=== PATIENT | female | born 1960 ===

== ENCOUNTER 2020-06-19 20:31 | Inpatient (IN) ==
[2020-06-19] MEDS ORDERED: Nitro 2% OINT (Nitroglycerin) 1 INCH/PAK TOPICAL ONE (20:55)
[2020-06-19] MEDS ORDERED: Nitro 2% OINT (Nitroglycerin) 1 INCH/PAK ONE (20:56)
[2020-06-19 21:08] LABS: ABS Eosinophils 0.2 10^3/ul (0-0.6); ABS Lymphocytes 2.9 10^3/ul (1.0-4.8); ABS Monocytes 0.6 10^3/ul (0-0.8); ABS Neutrophils 4.2 10^3/ul (1.5-7.7); Eosinophil % 2.9 %; Hematocrit 40 % (35-47); Hemoglobin 13.7 g/dL (12.0-16.0); Lymphocyte % 36.3 %; Mean Corpuscular HGB Conc 35 g/dL (31-36); Mean Corpuscular Hemoglobin 33 pg (27-31); Mean Corpuscular Volume 95 fL (80-97); Mean Platelet Volume 6.9 fL (7.4-10.4); Nucleated Red Blood Cells % 0.1; Platelet Count 243 10^3/uL (150-450); Red Blood Count 4.18 10^6 /uL (3.70-4.87); Red Cell Distribution Width 12 % (10-15)
[2020-06-19 21:18] LABS: INR 1.08 (0.82-1.09)
[2020-06-19 21:25] LABS: Albumin 4.4 g/dL (3.2-5.2); Albumin/Globulin Ratio 1.3 (1-3); BUN/Creatinine Ratio 23.2 (8-20); Calcium 9.6 mg/dL (8.6-10.3); EGFR African American 133.6 (>60); EGFR Non-African American 110.4 (>60); Globulin 3.4 g/dL (2-4); Total Bilirubin 0.2 mg/dL (0.2-1.0); Total Protein 7.8 g/dL (6.4-8.9)
[2020-06-19 21:27] LABS: Potassium 4.3 mmol/L (3.5-5.0)
[2020-06-19 21:40] LABS: TSH Ultra Thyroid Stim Horm 2.74 mcIU/mL (0.34-5.60)
[2020-06-19] MEDS ORDERED: Dextrose 50% Syringe 50 ml 25 GM/50 ML SYRINGE IV PUSH PRN (22:11)
[2020-06-19 22:38] LABS: C Reactive Protein 5.95 mg/L (<8.01); HDL Cholesterol 39.1 mg/dL; Magnesium 1.9 mg/dL (1.9-2.7)
[2020-06-19] MEDS ORDERED: Al Hydrox/Mg Hydrox/Simet LIQ 30 ML UDC PO ONE (22:46)
[2020-06-19] MEDS ORDERED: Pantoprazole VIAL 40 MG VIAL IV ONE (22:46)
[2020-06-20] MEDS ORDERED: Albuterol HFA INHALER 8 gm MDI INH PRN (00:57)
[2020-06-20] MEDS: Saline NASAL SPRAY 0.65% BTL BOTH NARES PRN (02:22)
[2020-06-20] MEDS ORDERED: Ondansetron 4 mg VIAL 2 MG/ML 2 ml VIAL IV PRN (02:52)
[2020-06-20] MEDS: Nitro 2% OINT (Nitroglycerin) 1 INCH/PAK TOPICAL SCH ×4 (05:48→21:00)
[2020-06-20] MEDS: Mometasone/Formoter 200/5 MDI INH SCH ×2 (09:30→20:58)
[2020-06-20] MEDS: Aspirin EC 81 mg TAB.EC (enteric coated) PO SCH (10:25)
[2020-06-20] MEDS: DULoxetine DR 60 mg CAP PO SCH (10:26)
[2020-06-20] MEDS: Fluticasone NASAL SPRAY 50MCG 16 gm SPRAY BTL INTRANASAL SCH ×2 (10:36→20:59)
[2020-06-20] MEDS ORDERED: Regadenoson 0.4 MG/5 ML SYRINGE ONE (10:46)
[2020-06-20] MEDS: Nitro Patch/OINT Remove PATCH PATCH OFF SCH ×2 (12:30→17:43)
[2020-06-20] MEDS ORDERED: NS 0.9% 1000 ml BAG 1,000 ML IV SCH (23:55)
[2020-06-21] MEDS: Heparin 5000 UNITS/ML 1 mL VIAL SUBCUT SCH ×4 (00:01→21:53)
[2020-06-21] MEDS: Nitro OINT Remove TOPICAL SCH (00:03)
[2020-06-21] MEDS: Nitro 2% OINT (Nitroglycerin) 1 INCH/PAK TOPICAL SCH ×2 (05:17→05:21)
[2020-06-21 06:49] LABS: ABS Eosinophils 0.2 10^3/ul (0-0.6); ABS Lymphocytes 3.5 10^3/ul (1.0-4.8); ABS Monocytes 0.5 10^3/ul (0-0.8); ABS Neutrophils 3.5 10^3/ul (1.5-7.7); Eosinophil % 2.9 %; Hematocrit 37 % (35-47); Hemoglobin 12.8 g/dL (12.0-16.0); Lymphocyte % 45.2 %; Mean Corpuscular HGB Conc 35 g/dL (31-36); Mean Corpuscular Hemoglobin 33 pg (27-31); Mean Corpuscular Volume 96 fL (80-97); Mean Platelet Volume 6.8 fL (7.4-10.4); Platelet Count 223 10^3/uL (150-450); Red Blood Count 3.83 10^6 /uL (3.70-4.87); Red Cell Distribution Width 12 % (10-15); White Blood Count 7.8 10^3/uL (3.5-10.8)
[2020-06-21 07:06] LABS: Albumin 3.9 g/dL (3.2-5.2); Albumin/Globulin Ratio 1.2 (1-3); BUN/Creatinine Ratio 25.5 (8-20); Calcium 8.3 mg/dL (8.6-10.3); EGFR African American 163.6 (>60); EGFR Non-African American 135.2 (>60); Globulin 3.2 g/dL (2-4); Magnesium 2.1 mg/dL (1.9-2.7); Total Bilirubin 0.4 mg/dL (0.2-1.0); Total Protein 7.1 g/dL (6.4-8.9)
[2020-06-21] MEDS ORDERED: fentaNYL 100 mcg/2 ml 50 MCG/ML VIAL ONE (07:51)
[2020-06-21] MEDS ORDERED: Midazolam 5 mg/5 ml VIAL 1 mg/ml 5 ml VIAL (5 mg) ONE (07:51)
[2020-06-21] MEDS ORDERED: Iohexol 350 (CONTRAST) 200 ML MDV IV ONE ×2 (07:51→08:55)
[2020-06-21] MEDS ORDERED: nitroGLYCERIN DRIP 25,000 MCG/250 ML BTL ONE (07:51)
[2020-06-21] MEDS ORDERED: Heparin 2 UNITS/ML 1000 mls 2,000 ML IV ONE (07:51)
[2020-06-21] MEDS ORDERED: VERAPAMIL 2.5 MG/ML 2 ML VIAL ** 5 mg/2 ml ONE (07:51)
[2020-06-21] MEDS ORDERED: Heparin 1,000 UNIT/ML 10 ml (10,000 UNITS) CATHLAB/DIALYSIS ONE (07:51)
[2020-06-21] MEDS ORDERED: Lidocaine 1% VIAL 10 MG/ML VIAL ONE (07:51)
[2020-06-21] MEDS ORDERED: diPHENhydraMINE 25 mg TAB PO PRN (08:00)
[2020-06-21] MEDS: Aspirin EC 81 mg TAB.EC (enteric coated) PO SCH (08:15)
[2020-06-21] MEDS: Mometasone/Formoter 200/5 MDI INH SCH ×2 (08:41→19:10)
[2020-06-21] MEDS: DULoxetine DR 60 mg CAP PO SCH (11:12)
[2020-06-21] MEDS: Fluticasone NASAL SPRAY 50MCG 16 gm SPRAY BTL INTRANASAL SCH ×2 (11:44→22:17)
[2020-06-21 12:32] LABS: CKMB ng/mL 2.3 ng/mL (0.6-6.3)
[2020-06-21 16:16] LABS: Urine Appearance Cloudy; Urine Bilirubin Negative (Negative); Urine Blood Negative (Negative); Urine Color Yellow; Urine Glucose Negative (Negative); Urine Ketones Negative (Negative); Urine Nitrite Negative (Negative); Urine Protein Negative (Negative); Urine Specific Gravity 1.024 (1.010-1.030); Urine Urobilinogen Negative (Negative)
[2020-06-21] MEDS ORDERED: Al Hydrox/Mg Hydrox/Simet LIQ 30 ML UDC PO ONE (19:39)
[2020-06-22 04:24] LABS: ABS Eosinophils 0.3 10^3/ul (0-0.6); ABS Lymphocytes 2.9 10^3/ul (1.0-4.8); ABS Monocytes 0.6 10^3/ul (0-0.8); ABS Neutrophils 4.5 10^3/ul (1.5-7.7); Eosinophil % 3.5 %; Hematocrit 40 % (35-47); Hemoglobin 13.7 g/dL (12.0-16.0); Lymphocyte % 34.8 %; Mean Corpuscular HGB Conc 35 g/dL (31-36); Mean Corpuscular Hemoglobin 33 pg (27-31); Mean Corpuscular Volume 95 fL (80-97); Mean Platelet Volume 6.9 fL (7.4-10.4); Platelet Count 242 10^3/uL (150-450); Red Blood Count 4.17 10^6 /uL (3.70-4.87); Red Cell Distribution Width 12 % (10-15); White Blood Count 8.3 10^3/uL (3.5-10.8)
[2020-06-22 04:54] LABS: Albumin 4.2 g/dL (3.2-5.2); Albumin/Globulin Ratio 1.2 (1-3); Calcium 9.1 mg/dL (8.6-10.3); EGFR African American 152.3 (>60); EGFR Non-African American 125.9 (>60); Globulin 3.4 g/dL (2-4); HDL Cholesterol 41.6 mg/dL; Total Bilirubin 0.4 mg/dL (0.2-1.0); Total Protein 7.6 g/dL (6.4-8.9)
[2020-06-22] MEDS: Heparin 5000 UNITS/ML 1 mL VIAL SUBCUT SCH (05:33)
[2020-06-22] MEDS: Mometasone/Formoter 200/5 MDI INH SCH ×2 (07:20→20:53)
[2020-06-22] MEDS: Aspirin EC 81 mg TAB.EC (enteric coated) PO SCH (08:22)
[2020-06-22] MEDS: DULoxetine DR 60 mg CAP PO SCH (08:22)
[2020-06-22] MEDS: Saline NASAL SPRAY 0.65% BTL BOTH NARES PRN (08:33)
[2020-06-22] MEDS: Fluticasone NASAL SPRAY 50MCG 16 gm SPRAY BTL INTRANASAL SCH (08:34)
[2020-06-22] MEDS: Nitro 2% OINT (Nitroglycerin) 1 INCH/PAK TOPICAL SCH ×2 (10:41→10:42)
[2020-06-22] MEDS: Nitro OINT Remove TOPICAL SCH (10:42)
[2020-06-22] MEDS: Nitro Patch/OINT Remove PATCH PATCH OFF SCH (10:42)
[2020-06-22 13:30] VITALS: BP 146/70
== END 2020-06-22 12:57 | disposition home or self-care (01) | DRG 247 ==
LOC: ED 20:31 → MEDTELE 20:31 → ICU 06-21 10:15
PROVIDERS: ADMIT Internal Medicine; ATTEND Surgery Surgical Critical Care

== ENCOUNTER 2022-08-29 17:40 | Inpatient (IN) ==
[2022-08-29] MEDS ORDERED: Morphine 4 MG/ML VIAL (1 ml) IV ONE ×2 (18:30→20:02)
[2022-08-29] MEDS ORDERED: Ondansetron 4 mg VIAL 2 MG/ML 2 ml VIAL IV ONE (18:30)
[2022-08-29] MEDS ORDERED: Lactated Ringers 1000 ml BAG 1,000 ML IV ONE (18:30)
[2022-08-29 18:37] LABS: ABS Monocytes 0.4 10^3/ul (0-0.8); ABS Neutrophils 9.3 10^3/ul (1.5-7.7); Eosinophil % 0.2 %; Hematocrit 37 % (35-47); Hemoglobin 12.7 g/dL (12.0-16.0); Lymphocyte % 9.6 %; Mean Corpuscular HGB Conc 35 g/dL (31-36); Mean Corpuscular Hemoglobin 31 pg (27-31); Mean Corpuscular Volume 91 fL (80-97); Mean Platelet Volume 6.8 fL (7.4-10.4); Platelet Count 235 10^3/uL (150-450); Red Blood Count 4.05 10^6 /uL (3.70-4.87); Red Cell Distribution Width 13 % (10-15); White Blood Count 10.8 10^3/uL (3.5-10.8)
[2022-08-29 19:30] LABS: Albumin 3.3 g/dL (3.2-5.2); Albumin/Globulin Ratio 1.7 (1-3); Creatinine, Serum 0.33 mg/dL (0.51-0.95); Globulin 1.9 g/dL (2-4); Potassium 3.2 mmol/L (3.5-5.0); Total Bilirubin 1.3 mg/dL (0.2-1.0); Total Protein 5.2 g/dL (6.4-8.9); eGFR CKD-EPI 117.1 (>60)
[2022-08-29 19:34] LABS: Calcium 6.2 mg/dL (8.6-10.3)
[2022-08-29 20:29] LABS: High Sensitivity Troponin 1 Hr 4 pg/mL (<15)
[2022-08-29] MEDS ORDERED: Calcium Gluconate 2 GM in NS 0.9% 100 ml BAG 100 ML IVPB ONE (21:38)
[2022-08-30] MEDS ORDERED: Morphine 2 MG/ML SYRINGE IV PRN (00:28)
[2022-08-30] MEDS ORDERED: Magnesium Sulfate IV 3 GM in NS 0.9% 100 ml BAG 100 ML IVPB ONE (00:30)
[2022-08-30] MEDS ORDERED: Fluticasone NASAL SPRAY 50MCG 16 gm SPRAY BTL INTRANASAL PRN (01:22)
[2022-08-30] MEDS: Potassium Chlor 20 meq TAB.ER PO SCH ×3 (01:22→10:59)
[2022-08-30] MEDS: Ondansetron 4 mg VIAL 2 MG/ML 2 ml VIAL IV PRN ×3 (01:32→12:49)
[2022-08-30] MEDS: Morphine 2 MG/ML SYRINGE IV PRN ×6 (01:32→20:58)
[2022-08-30] MEDS ORDERED: Dextrose 50% Syringe 50 ml 25 GM/50 ML SYRINGE IV PUSH PRN (01:32)
[2022-08-30 01:48] LABS: HDL Cholesterol 39.3 mg/dL
[2022-08-30] MEDS: Enoxaparin 40 MG/0.4 ML SYR SUBCUT SCH (02:02)
[2022-08-30] MEDS ORDERED: Ondansetron ODT 4 mg TAB 4 MG TAB PO PRN (02:10)
[2022-08-30 06:31] LABS: ABS Lymphocytes 1.3 10^3/ul (1.0-4.8); ABS Monocytes 0.7 10^3/ul (0-0.8); ABS Neutrophils 9.8 10^3/ul (1.5-7.7); Hematocrit 43 % (35-47); Hemoglobin 14.8 g/dL (12.0-16.0); Lymphocyte % 10.8 %; Mean Corpuscular HGB Conc 35 g/dL (31-36); Mean Corpuscular Hemoglobin 32 pg (27-31); Mean Corpuscular Volume 92 fL (80-97); Mean Platelet Volume 6.8 fL (7.4-10.4); Platelet Count 325 10^3/uL (150-450); Red Blood Count 4.66 10^6 /uL (3.70-4.87); Red Cell Distribution Width 13 % (10-15); White Blood Count 11.9 10^3/uL (3.5-10.8)
[2022-08-30] MEDS: Lactated Ringers 1000 ml BAG 1,000 ML IV SCH ×3 (06:54→18:54)
[2022-08-30 06:57] LABS: Albumin 4.3 g/dL (3.2-5.2); Albumin/Globulin Ratio 1.3 (1-3); Calcium 9.1 mg/dL (8.6-10.3); Creatinine, Serum 0.48 mg/dL (0.51-0.95); Globulin 3.2 g/dL (2-4); Potassium 4.1 mmol/L (3.5-5.0); Total Protein 7.5 g/dL (6.4-8.9)
[2022-08-30] MEDS: Aspirin EC 81 mg TAB.EC (enteric coated) PO SCH (08:21)
[2022-08-30] MEDS: Nitroglycerin 0.1 mg/hr PATCH (2.5 mg) TRANSDERM SCH (08:22)
[2022-08-30] MEDS ORDERED: HYDROmorphone 0.5 MG/0.5 ML SYRINGE IV ONE (09:58)
[2022-08-30] MEDS: PTO: Linaclotide 290 mcg CAP (NF) PO SCH (12:54)
[2022-08-30] MEDS: Acetaminophen IV 1 GM/100ML 1,000 MG/100 ML BAG IV PRN (22:31)
[2022-08-31] MEDS: Lactated Ringers 1000 ml BAG 1,000 ML IV SCH ×5 (00:44→23:30)
[2022-08-31] MEDS: Morphine 2 MG/ML SYRINGE IV PRN ×7 (00:51→20:20)
[2022-08-31] MEDS: Enoxaparin 40 MG/0.4 ML SYR SUBCUT SCH (02:16)
[2022-08-31] MEDS: Ondansetron 4 mg VIAL 2 MG/ML 2 ml VIAL IV PRN ×2 (04:21→11:52)
[2022-08-31 06:09] LABS: ABS Lymphocytes 1.7 10^3/ul (1.0-4.8); ABS Monocytes 1.4 10^3/ul (0-0.8); ABS Neutrophils 12.1 10^3/ul (1.5-7.7); Hematocrit 38 % (35-47); Hemoglobin 12.7 g/dL (12.0-16.0); Mean Corpuscular HGB Conc 34 g/dL (31-36); Mean Corpuscular Hemoglobin 31 pg (27-31); Mean Corpuscular Volume 91 fL (80-97); Mean Platelet Volume 6.7 fL (7.4-10.4); Platelet Count 263 10^3/uL (150-450); Red Blood Count 4.17 10^6 /uL (3.70-4.87); Red Cell Distribution Width 14 % (10-15); White Blood Count 15.2 10^3/uL (3.5-10.8)
[2022-08-31 06:40] LABS: Albumin 3.7 g/dL (3.2-5.2); Albumin/Globulin Ratio 1.4 (1-3); Calcium 8.4 mg/dL (8.6-10.3); Creatinine, Serum 0.44 mg/dL (0.51-0.95); Globulin 2.6 g/dL (2-4); Magnesium 1.7 mg/dL (1.9-2.7); Potassium 3.9 mmol/L (3.5-5.0); Total Bilirubin 1.3 mg/dL (0.2-1.0); Total Protein 6.3 g/dL (6.4-8.9); eGFR CKD-EPI 109.3 (>60)
[2022-08-31] MEDS: Aspirin EC 81 mg TAB.EC (enteric coated) PO SCH (08:21)
[2022-08-31] MEDS: Nitroglycerin 0.1 mg/hr PATCH (2.5 mg) TRANSDERM SCH (08:23)
[2022-08-31] MEDS: Acetaminophen IV 1 GM/100ML 1,000 MG/100 ML BAG IV PRN ×2 (08:24→17:51)
[2022-08-31] MEDS: PTO: Linaclotide 290 mcg CAP (NF) PO SCH (08:25)
[2022-08-31] MEDS ORDERED: Magnesium Sulfate 2 gm BAG 2 GM/50 ML BAG IVPB ONE (09:43)
[2022-09-01] MEDS: Enoxaparin 40 MG/0.4 ML SYR SUBCUT SCH (02:15)
[2022-09-01] MEDS: Morphine 2 MG/ML SYRINGE IV PRN ×6 (02:16→23:47)
[2022-09-01] MEDS ORDERED: Al Hydrox/Mg Hydrox/Simet LIQ 30 ML UDC PO ONE (05:12)
[2022-09-01 05:24] LABS: ABS Lymphocytes 1.4 10^3/ul (1.0-4.8); ABS Monocytes 1.1 10^3/ul (0-0.8); Eosinophil % 0.1 %; Hematocrit 35 % (35-47); Hemoglobin 11.6 g/dL (12.0-16.0); Lymphocyte % 10.1 %; Mean Corpuscular HGB Conc 33 g/dL (31-36); Mean Corpuscular Hemoglobin 30 pg (27-31); Mean Corpuscular Volume 91 fL (80-97); Mean Platelet Volume 6.5 fL (7.4-10.4); Platelet Count 226 10^3/uL (150-450); Red Blood Count 3.83 10^6 /uL (3.70-4.87); Red Cell Distribution Width 13 % (10-15); White Blood Count 13.5 10^3/uL (3.5-10.8)
[2022-09-01 06:23] LABS: Albumin 3.7 g/dL (3.2-5.2); Albumin/Globulin Ratio 1.6 (1-3); Calcium 7.9 mg/dL (8.6-10.3); Creatinine, Serum 0.37 mg/dL (0.51-0.95); Globulin 2.3 g/dL (2-4); Magnesium 1.7 mg/dL (1.9-2.7); Potassium 3.2 mmol/L (3.5-5.0); Total Bilirubin 1.4 mg/dL (0.2-1.0)
[2022-09-01 06:56] LABS: High Sensitivity Troponin 1 Hr 7 pg/mL (<15)
[2022-09-01] MEDS: PTO: Linaclotide 290 mcg CAP (NF) PO SCH (07:29)
[2022-09-01] MEDS ORDERED: Magnesium Sulfate 2 gm BAG 2 GM/50 ML BAG IVPB ONE (07:34)
[2022-09-01] MEDS ORDERED: Potassium Chlor 20 meq TAB.ER PO ONE (07:35)
[2022-09-01] MEDS: Lactated Ringers 1000 ml BAG 1,000 ML IV SCH ×2 (08:43→20:12)
[2022-09-01] MEDS: Acetaminophen IV 1 GM/100ML 1,000 MG/100 ML BAG IV PRN ×2 (08:46→23:46)
[2022-09-01] MEDS: Aspirin EC 81 mg TAB.EC (enteric coated) PO SCH (08:50)
[2022-09-01] MEDS: Nitroglycerin 0.1 mg/hr PATCH (2.5 mg) TRANSDERM SCH (08:51)
[2022-09-01] MEDS: Polyethylene Glycol 3350 17 GM PACKET PO SCH (13:34)
[2022-09-01] MEDS ORDERED: cefTRIAXone 1 gm/50 mL D5W 1 GM/50 ML BAG IV SCH (18:00)
[2022-09-01] MEDS: Doxycycline 100 MG in NS 0.9% 250 ML BAG IVPB SCH (19:54)
[2022-09-02] MEDS: Enoxaparin 40 MG/0.4 ML SYR SUBCUT SCH (02:13)
[2022-09-02] MEDS: Morphine 2 MG/ML SYRINGE IV PRN ×3 (05:32→21:08)
[2022-09-02] MEDS: Doxycycline 100 MG in NS 0.9% 250 ML BAG IVPB SCH ×2 (06:13→17:12)
[2022-09-02] MEDS: Lactated Ringers 1000 ml BAG 1,000 ML IV SCH (06:13)
[2022-09-02] MEDS: PTO: Linaclotide 290 mcg CAP (NF) PO SCH ×2 (07:18→07:40)
[2022-09-02] MEDS: Acetaminophen IV 1 GM/100ML 1,000 MG/100 ML BAG IV PRN ×2 (07:38→16:40)
[2022-09-02] MEDS: Aspirin EC 81 mg TAB.EC (enteric coated) PO SCH (07:39)
[2022-09-02] MEDS: Polyethylene Glycol 3350 17 GM PACKET PO SCH (07:39)
[2022-09-02] MEDS: Nitroglycerin 0.1 mg/hr PATCH (2.5 mg) TRANSDERM SCH (07:41)
[2022-09-02] MEDS ORDERED: Morphine 2 MG/ML SYRINGE IV PRN (08:59)
[2022-09-02 09:54] LABS: ABS Eosinophils 0.2 10^3/ul (0-0.6); ABS Lymphocytes 1.6 10^3/ul (1.0-4.8); ABS Neutrophils 9.2 10^3/ul (1.5-7.7); Eosinophil % 1.5 %; Hematocrit 33 % (35-47); Hemoglobin 11.4 g/dL (12.0-16.0); Lymphocyte % 13.6 %; Mean Corpuscular HGB Conc 35 g/dL (31-36); Mean Corpuscular Hemoglobin 32 pg (27-31); Mean Corpuscular Volume 92 fL (80-97); Mean Platelet Volume 6.6 fL (7.4-10.4); Platelet Count 310 10^3/uL (150-450); Red Blood Count 3.55 10^6 /uL (3.70-4.87); Red Cell Distribution Width 13 % (10-15)
[2022-09-02 10:31] LABS: Albumin 3.7 g/dL (3.2-5.2); Albumin/Globulin Ratio 1.5 (1-3); Calcium 8.3 mg/dL (8.6-10.3); Creatinine, Serum 0.37 mg/dL (0.51-0.95); Globulin 2.4 g/dL (2-4); Magnesium 1.8 mg/dL (1.9-2.7); Potassium 3.4 mmol/L (3.5-5.0); Total Bilirubin 1.3 mg/dL (0.2-1.0); Total Protein 6.1 g/dL (6.4-8.9)
[2022-09-02] MEDS ORDERED: Furosemide 20 mg/2 ml IV VIAL IV ONE (11:15)
[2022-09-02] MEDS ORDERED: Magnesium Sulfate IV 3 GM in NS 0.9% 100 ml BAG 100 ML IVPB ONE (11:22)
[2022-09-03] MEDS: Morphine 2 MG/ML SYRINGE IV PRN ×2 (00:43→06:22)
[2022-09-03] MEDS: Acetaminophen IV 1 GM/100ML 1,000 MG/100 ML BAG IV PRN (01:41)
[2022-09-03] MEDS: Enoxaparin 40 MG/0.4 ML SYR SUBCUT SCH (01:48)
[2022-09-03 06:24] LABS: ABS Eosinophils 0.3 10^3/ul (0-0.6); ABS Lymphocytes 2.3 10^3/ul (1.0-4.8); ABS Neutrophils 6.8 10^3/ul (1.5-7.7); Eosinophil % 2.6 %; Hematocrit 30 % (35-47); Hemoglobin 10.3 g/dL (12.0-16.0); Lymphocyte % 22.4 %; Mean Corpuscular HGB Conc 34 g/dL (31-36); Mean Corpuscular Hemoglobin 31 pg (27-31); Mean Corpuscular Volume 91 fL (80-97); Mean Platelet Volume 6.5 fL (7.4-10.4); Platelet Count 300 10^3/uL (150-450); Red Blood Count 3.35 10^6 /uL (3.70-4.87); Red Cell Distribution Width 13 % (10-15); White Blood Count 10.4 10^3/uL (3.5-10.8)
[2022-09-03] MEDS: Doxycycline 100 MG in NS 0.9% 250 ML BAG IVPB SCH ×2 (06:34→18:23)
[2022-09-03 06:43] LABS: Albumin 3.5 g/dL (3.2-5.2); Albumin/Globulin Ratio 1.6 (1-3); Calcium 8.1 mg/dL (8.6-10.3); Creatinine, Serum 0.37 mg/dL (0.51-0.95); Globulin 2.2 g/dL (2-4); Magnesium 1.8 mg/dL (1.9-2.7); Potassium 2.9 mmol/L (3.5-5.0); Total Bilirubin 1.1 mg/dL (0.2-1.0); Total Protein 5.7 g/dL (6.4-8.9)
[2022-09-03] MEDS ORDERED: Potassium Chlor 20 meq TAB.ER PO ONE (07:02)
[2022-09-03] MEDS ORDERED: Magnesium Sulfate 2 gm BAG 2 GM/50 ML BAG IVPB ONE (07:02)
[2022-09-03] MEDS: Aspirin EC 81 mg TAB.EC (enteric coated) PO SCH (09:54)
[2022-09-03] MEDS: DULoxetine DR 60 mg CAP PO SCH (09:54)
[2022-09-03] MEDS: Nitroglycerin 0.1 mg/hr PATCH (2.5 mg) TRANSDERM SCH (09:54)
[2022-09-03] MEDS: Polyethylene Glycol 3350 17 GM PACKET PO SCH (09:55)
[2022-09-03] MEDS: PTO: Linaclotide 290 mcg CAP (NF) PO SCH (09:55)
[2022-09-03] MEDS: oxyCODONE/Acetamin 5/325 mg TAB PO PRN ×2 (11:31→19:49)
[2022-09-04] MEDS: oxyCODONE/Acetamin 5/325 mg TAB PO PRN ×2 (02:25→11:51)
[2022-09-04] MEDS: Enoxaparin 40 MG/0.4 ML SYR SUBCUT SCH (02:25)
[2022-09-04 05:58] LABS: ABS Eosinophils 0.4 10^3/ul (0-0.6); ABS Lymphocytes 2.3 10^3/ul (1.0-4.8); ABS Monocytes 0.8 10^3/ul (0-0.8); ABS Neutrophils 5.9 10^3/ul (1.5-7.7); Eosinophil % 4.1 %; Hematocrit 29 % (35-47); Hemoglobin 9.9 g/dL (12.0-16.0); Lymphocyte % 24.5 %; Mean Corpuscular HGB Conc 35 g/dL (31-36); Mean Corpuscular Hemoglobin 32 pg (27-31); Mean Corpuscular Volume 91 fL (80-97); Mean Platelet Volume 6.3 fL (7.4-10.4); Platelet Count 311 10^3/uL (150-450); Red Blood Count 3.14 10^6 /uL (3.70-4.87); Red Cell Distribution Width 13 % (10-15); White Blood Count 9.5 10^3/uL (3.5-10.8)
[2022-09-04] MEDS: Doxycycline 100 MG in NS 0.9% 250 ML BAG IVPB SCH (06:13)
[2022-09-04 06:23] LABS: Calcium 7.7 mg/dL (8.6-10.3); Creatinine, Serum 0.36 mg/dL (0.51-0.95); Magnesium 1.6 mg/dL (1.9-2.7); Potassium 3.3 mmol/L (3.5-5.0); eGFR CKD-EPI 114.7 (>60)
[2022-09-04] MEDS ORDERED: Potassium Chlor 20 meq TAB.ER PO ONE (07:07)
[2022-09-04] MEDS ORDERED: Magnesium Sulf 4 GM/100 ML IV 4,000 MG/100 ML BAG IVPB ONE (07:07)
[2022-09-04] MEDS: Aspirin EC 81 mg TAB.EC (enteric coated) PO SCH (08:17)
[2022-09-04] MEDS: DULoxetine DR 60 mg CAP PO SCH (08:17)
[2022-09-04] MEDS: PTO: Linaclotide 290 mcg CAP (NF) PO SCH (08:18)
[2022-09-04] MEDS: Nitroglycerin 0.1 mg/hr PATCH (2.5 mg) TRANSDERM SCH (08:19)
[2022-09-04] MEDS: Polyethylene Glycol 3350 17 GM PACKET PO SCH (08:19)
[2022-09-04] MEDS: Ondansetron 4 mg VIAL 2 MG/ML 2 ml VIAL IV PRN (09:59)
[2022-09-04 17:38] VITALS: BP 132/68
== END 2022-09-04 18:05 | disposition home or self-care (01) | DRG 440 ==
LOC: ED 17:40 → EDHOLD 08-30 00:26 → SUATTDRO 08-30 00:26 → EDHOLD 08-30 13:02 → MED 08-30 13:39
PROVIDERS: ADMIT Student in an Organized Health Care Education/Training Program; ATTEND Family Medicine